=== PATIENT | female | born 1955 ===

== ENCOUNTER 2023-09-02 08:13 | Outpatient (CLI) | payer OTHER | END 2023-09-02 08:27 | disposition home or self-care (01) | LOC: RAD 08:13 | PROVIDERS: ATTEND Surgery | DX: C19 Malignant neoplasm of rectosigmoid junction (principal); K59.09 Other constipation ==

== ENCOUNTER 2023-09-05 12:30 | Inpatient (IN) | payer OTHER ==
[~2023-09-05] VITALS: Ht 154.9 cm; Wt 78.0 kg
[2023-09-05] MEDS ORDERED: LIPITOR20 MG PO (16:16)
[2023-09-05] MEDS ORDERED: ZESTRIL5 MG PO (16:16)
[2023-09-05] MEDS ORDERED: CALTRATE 600+D1 EACH PO (16:16)
[2023-09-05] MEDS ORDERED: HYDRODIURIL12.5 MG PO (16:16)
[2023-09-05] MEDS ORDERED: RESTORIL30 M1 PO (16:16)
[2023-09-05] MEDS ORDERED: ESTROGEL50 GM TOP (16:17)
[2023-09-05] MEDS ORDERED: CIDAFLEX TABLE1 EACH PO (16:17)
[2023-09-05] MEDS ORDERED: MELATONIN10 M5 PO (16:17)
[2023-09-11] MEDS ORDERED: levoFLOXacin IN DEXTROSE 5 % 5 MG/ML PIGGYBAG IV ONE (08:45)
[2023-09-11] MEDS ORDERED: METRONIDAZOLE/SODIUM CHLORIDE 200 ML IV ONE (08:45)
[2023-09-11] MEDS ORDERED: LIDOCAINE HCL 1%/EPINEPHRINE 20ML VIAL IJ ONE (08:45)
[2023-09-11] MEDS ORDERED: BUPIVACAINE HCL 30 ML VIAL IJ ONE (08:45)
[2023-09-11] MEDS ORDERED: MORPHINE SULFATE 4 MG/ML CARTRIDGE IV PRN (09:45)
[2023-09-11] MEDS ORDERED: ONDANSETRON HCL 2 MG/ML VIAL IV PRN (09:45)
[2023-09-11] MEDS ORDERED: RINGERS SOLUTION,LACTATED 1,000 ML IV SCH (09:45)
[2023-09-11] MEDS ORDERED: OxyCODONE HCL 5 MG TABLET (ROXICODONE) PO PRN (09:45)
[2023-09-11] MEDS ORDERED: PROTECT PLUS S1 EACH (11:41)
[2023-09-11 11:50] LABS: HEMATOCRIT 35.7 % (36.0-45.00); HEMOGLOBIN 12.1 g/dL (12.0-15.00); MEAN CELL VOLUME 83.9 fL (80.00-100.00); MEAN CORPUSCULAR HEMOGLOBIN 28.5 pg (27.00-32.0); PLATELET COUNT 269 K/uL (150-450); RED BLOOD COUNT 4.25 M/uL (4.00-6.00); RED CELL DISTRIBUTION WIDTH 14.4 % (11.5-14.5)
[2023-09-11] MEDS ORDERED: ENALAPRILAT DIHYDRATE 1.25 MG/ML VIAL IV PRN (12:30)
[2023-09-11] MEDS ORDERED: HYOSCYAMINE SULFATE 0.125 MG TAB.SUBL SL SCH (13:00)
[2023-09-11] MEDS ORDERED: SIMETHICONE 125 MG CAPSULE PO SCH (13:00)
[2023-09-11] MEDS ORDERED: ACETAMINOPHEN 500 MG GEL..CAP PO SCH (14:00)
[2023-09-11] MEDS ORDERED: GABAPENTIN 300 MG CAPSULE PO SCH (17:00)
[2023-09-11] MEDS ORDERED: POLYETHYLENE GLYCOL 3350 17 GM BLIST.PACK PO SCH (17:00)
[2023-09-11] MEDS ORDERED: METOCLOPRAMIDE HCL 5 MG/ML VIAL IV SCH (17:00)
[2023-09-11] MEDS ORDERED: CELECOXIB 200 MG CAPSULE PO SCH (21:00)
[2023-09-11] MEDS ORDERED: FAMOTIDINE/PF 20 MG/2 ML VIAL IV PUSH SCH (21:00)
[2023-09-11] MEDS ORDERED: LISINOPRIL 5 MG TABLET PO SCH (21:00)
[2023-09-12 08:06] LABS: HEMATOCRIT 34.9 % (36.0-45.00); HEMOGLOBIN 11.9 g/dL (12.0-15.00); MEAN CELL VOLUME 81.8 fL (80.00-100.00); MEAN CORPUSCULAR HEMOGLOBIN 27.8 pg (27.00-32.0); PLATELET COUNT 250 K/uL (150-450); RED BLOOD COUNT 4.27 M/uL (4.00-6.00); RED CELL DISTRIBUTION WIDTH 14.8 % (11.5-14.5)
[2023-09-12 08:55] LABS: ALBUMIN 2.6 gm/dL (3.4-5.0); CALCIUM 8.1 mg/dL (8.5-10.1); CREATININE SERUM 0.64 mg/dL (0.55-1.02); GFR 92.56; MAGNESIUM 1.9 mg/dL (1.8-2.4); PHOSPHOROUS 3.2 mg/dL (2.5-4.9); POTASSIUM 3.59 mEq/L (3.5-5.1)
[2023-09-12] MEDS ORDERED: LACTOBACILLUS ACIDOPHILUS 1 CAP CAP PO SCH (09:00)
[2023-09-12] MEDS ORDERED: HYDROCHLOROTHIAZIDE 12.5 MG CAPSULE PO SCH (09:00)
[2023-09-12] MEDS ORDERED: TEMAZEPAM 15 MG CAPSULE PO PRN (12:30)
[2023-09-12] MEDS ORDERED: ENOXAPARIN SODIUM 40 MG/0.4 ML SYRINGE SUBCUTANEO SCH (17:00)
[2023-09-12] MEDS ORDERED: ATORVASTATIN CALCIUM 20 MG TABLET PO SCH (17:00)
[2023-09-12] MEDS ORDERED: MELATONIN 5 MG TABLET PO SCH (21:00)
[2023-09-13 06:44] LABS: HEMATOCRIT 33.3 % (36.0-45.00); HEMOGLOBIN 11.4 g/dL (12.0-15.00); MEAN CELL VOLUME 82.1 fL (80.00-100.00); MEAN CORPUSCULAR HEMOGLOBIN 28.2 pg (27.00-32.0); MEAN CORPUSCULAR HGB CONC 34.4 g/dl (32.0-36.0); PLATELET COUNT 226 K/uL (150-450); RED BLOOD COUNT 4.06 M/uL (4.00-6.00); RED CELL DISTRIBUTION WIDTH 14.5 % (11.5-14.5)
[2023-09-13 07:09] LABS: CALCIUM 8.5 mg/dL (8.5-10.1); CREATININE SERUM 0.61 mg/dL (0.55-1.02); GFR 97.83; MAGNESIUM 1.9 mg/dL (1.8-2.4); PHOSPHOROUS 3.3 mg/dL (2.5-4.9); POTASSIUM 3.58 mEq/L (3.5-5.1)
[2023-09-13] MEDS ORDERED: ENOXAPARIN SODIUM 40 MG/0.4 ML SYRINGE SUBCUTANEO SCH (09:00)
[2023-09-13] MEDS ORDERED: MAGNESIUM HYDROXIDE 30 ML BLIST.PACK PO STA (09:33)
[2023-09-13] MEDS ORDERED: TEMAZEPAM 15 MG CAPSULE PO SCH (21:00)
[2023-09-14] MEDS ORDERED: CELECOXIB200 MG PO (07:53)
[2023-09-14] MEDS ORDERED: GAS RELIEF125 MG PO (07:53)
[2023-09-14] MEDS ORDERED: NEURONTIN300 MG PO (07:54)
[2023-09-14] MEDS ORDERED: INTESTINEX680 M1 PO (07:54)
[2023-09-15] MEDS ORDERED: LACTULOSE 10 G/15 ML ML PO ONE (13:15)
[2023-09-15] MEDS ORDERED: POLYETHYLENE GLYCOL 3350 17 GM BLIST.PACK PO ONE (13:15)
[2023-09-15] MEDS ORDERED: MAGNESIUM HYDROXIDE 400 MG/5 ML ML PO ONE (13:15)
== END 2023-09-16 13:18 | disposition home or self-care (01) | DRG 331 ==
LOC: EDUNIT# 12:30 → SURG 09-11 05:15 → O/R 09-11 05:15 → SURH 09-11 12:00 → SURG 09-11 13:25
PROVIDERS: Internal Medicine Geriatric Medicine; ADMIT Surgery; ATTEND Surgery
PROC: 0DBP4ZZ Excision of Rectum, Percutaneous Endoscopic Approach (ICD-10-PCS; 2023-09-11)
PROC: 07BB4ZZ Excision of Mesenteric Lymphatic, Percutaneous Endoscopic Approach (ICD-10-PCS; 2023-09-11)
PROC: 0DTN4ZZ Resection of Sigmoid Colon, Percutaneous Endoscopic Approach (ICD-10-PCS; principal; 2023-09-11 12:00)
DX: C19 Malignant neoplasm of rectosigmoid junction (principal); K59.09 Other constipation; R59.0 Localized enlarged lymph nodes